=== PATIENT | female | born 1965 ===

== ENCOUNTER 2020-12-28 07:35 | Day surgery (SDC) | payer OTHER | END 2020-12-28 14:00 | disposition home or self-care (01) | LOC: AMB-ENDOS 07:35 | PROVIDERS: ATTEND Surgery | DX: K62.89 Other specified diseases of anus and rectum (principal); K64.8 Other hemorrhoids; Z20.822 Contact with and (suspected) exposure to COVID-19; Z12.11 Encounter for screening for malignant neoplasm of colon ==

== ENCOUNTER 2023-05-08 09:37 | Inpatient (IN) | payer OTHER ==
[2023-05-08] MEDS ORDERED: PEPCID 40MG (11:09)
[2023-05-08] MEDS ORDERED: LEVOTHYROXINE25 MCG PO (11:09)
[2023-05-08] MEDS ORDERED: TRETAL (11:10)
[2023-05-08] MEDS ORDERED: PROGRAF1 MG PO (11:11)
[2023-05-08] MEDS ORDERED: PREDNISONE 5 MG (11:12)
[2023-05-14 12:40] LABS: HEMATOCRIT 39.5 % (36.0-45.00); HEMOGLOBIN 13.3 g/dL (12.0-15.00); MEAN CELL VOLUME 89.1 fL (80.00-100.00); MEAN CORPUSCULAR HEMOGLOBIN 30.1 pg (27.00-32.0); MEAN CORPUSCULAR HGB CONC 33.8 g/dl (32.0-36.0); PLATELET COUNT 373 K/uL (150-450); RED BLOOD COUNT 4.43 M/uL (4.00-6.00); RED CELL DISTRIBUTION WIDTH 13.9 % (11.5-14.5)
[2023-05-15 06:59] LABS: HEMATOCRIT 38.7 % (36.0-45.00); HEMOGLOBIN 12.8 g/dL (12.0-15.00); MEAN CELL VOLUME 91.8 fL (80.00-100.00); MEAN CORPUSCULAR HEMOGLOBIN 30.4 pg (27.00-32.0); MEAN CORPUSCULAR HGB CONC 33.1 g/dl (32.0-36.0); PLATELET COUNT 364 K/uL (150-450); RED BLOOD COUNT 4.22 M/uL (4.00-6.00); RED CELL DISTRIBUTION WIDTH 13.6 % (11.5-14.5)
[2023-05-15 07:19] LABS: ALBUMIN 3.3 gm/dL (3.4-5.0); CALCIUM 9.9 mg/dL (8.5-10.1); CREATININE SERUM 1.04 mg/dL (0.55-1.02); GFR 55.01; PHOSPHOROUS 4.7 mg/dL (2.5-4.9); POTASSIUM 4.81 mEq/L (3.5-5.1)
[2023-05-15 07:25] LABS: MAGNESIUM 1.4 mg/dL (1.8-2.4)
[2023-05-15] MEDS ORDERED: NEURONTIN300 MG PO (07:55)
[2023-05-15] MEDS ORDERED: PERCOCET 5-3251 EACH PO (07:55)
== END 2023-05-15 13:05 | disposition home or self-care (01) | DRG 748 ==
LOC: O/R 05-14 05:22 → SURG 05-14 07:00
PROVIDERS: ADMIT Surgery; ATTEND Surgery
PROC: 3E0T3BZ Introduction of Anesthetic Agent into Peripheral Nerves and Plexi, Percutaneous Approach (ICD-10-PCS; 2023-05-14)
PROC: 0JQC0ZZ Repair Pelvic Region Subcutaneous Tissue and Fascia, Open Approach (ICD-10-PCS; principal; 2023-05-14 07:00)
DX: N81.6 Rectocele (principal); Z20.822 Contact with and (suspected) exposure to COVID-19